=== PATIENT | female | born 1960 | race Caucasian/White ===

== ENCOUNTER → 2020-05-10 08:05 | Outpatient (CLI) | payer OTHER, SELFPAY ==
--- NOTE | ~2020-05-10 | XR_ITS ---
XR_CERV2-3V_CR DATE: 05/10/2020 08:30 INDICATION: Neck pain TECHNIQUE: AP, open mouth and lateral views COMPARISON: None FINDINGS: There is normal alignment of the cervical spine. C1 and C2 are normally aligned and the od ontoid process is intact. No fracture or dislocation or locked facet. No prevertebral soft tissue s welling. The cervical interspaces are preserved. There is degenerative change of the apophyseal zoila nts in the mid and lower cervical spine particularly. IMPRESSION: Degenerative changes involving particularly the apophyseal joints Reviewed, dictated and finalized at Location [facility]. Reviewed, dictated and finalized at location B.
== END ==
PROVIDERS: PCP Family Medicine; Visit Provider Family Medicine
DX: I10 Essential (primary) hypertension (principal); M54.2 Cervicalgia; R42 Dizziness and giddiness
CPT/HCPCS: 72040

== ENCOUNTER 2020-06-02 07:39 | Outpatient (CLI) | payer OTHER, SELFPAY ==
--- NOTE | ~2020-06-02 | US_ITS ---
EXAMINATION: US carotid duplex BI EXAM DATE: 06/02/2020 09:42 INDICATION: Neck pain, vertigo. TECHNIQUE: Grayscale, color and pulsed Doppler images of the cervical carotid arteries were obtained . The degree of vessel stenosis is placed in one of the following categories: normal, <50% stenosis, 50-69% stenosis, >=70% stenosis but less than near-occlusion, near-occlusion, or occlusion. Note that percent stenosis relative to normal distal artery lumen diameter is indirectly measured from velocit y measurements as described by Devante, et al. Radiology 2003; 229:340-346. There is no prior study fo r comparison. FINDINGS: RIGHT SIDE: Right common carotid artery peak systolic velocity (PSV in cm/s): 78 Right bulb/internal carotid artery peak systolic velocity (PSV in cm/s): 85 Right internal carotid artery end diastolic velocity (EDV in cm/s): 38 Right ICA/CCA peak systolic ratio: 1.1 Right external carotid artery peak systolic velocity (PSV in cm/s): 72 Right vertebral artery antegrade flow: yes There is no focal plaque identified. LEFT SIDE: Left common carotid artery peak systolic velocity (PSV in cm/s): 65 Left bulb/internal carotid artery peak systolic velocity (PSV in cm/s): 75 Left internal carotid artery end diastolic velocity (EDV in cm/s): 35 Left ICA/CCA peak systolic ratio: 1.1 Left external carotid artery peak systolic velocity (PSV in cm/s): 74 Left vertebral artery antegrade flow: yes There is no focal plaque identified. IMPRESSION: 1. Normal right internal carotid artery. 2. Normal left internal carotid artery. Reviewed, dictated and finalized at location A.
== END 2020-06-02 07:40 | disposition home or self-care (01) ==
LOC: ANHIMG 07:41
PROVIDERS: PCP Family Medicine; Visit Provider Family Medicine
DX: M54.2 Cervicalgia (principal); I10 Essential (primary) hypertension; R42 Dizziness and giddiness
CPT/HCPCS: 93880

== ENCOUNTER 2021-09-07 08:01 | Outpatient (CLI) | payer OTHER, SELFPAY ==
--- NOTE | ~2021-09-07 | XR_ITS ---
EXAMINATION: XR_RIBSBI_CR EXAM DATE: 09/07/2021 08:36 INDICATION: Left-sided rib pain, upper abdominal pain. TECHNIQUE: Frontal projection of the upper left ribs, frontal projection of the lower left ribs, obli que projection of the left ribs. Frontal projection of the upper right ribs, frontal projection of t he lower right ribs, oblique projection of the right ribs, without chest x-ray(s) for interpretation. FINDINGS: There are no displaced acute rib fractures identified. There are no osteoblastic or osteol ytic lesions identified. IMPRESSION: No acute displaced rib fractures bilaterally. Reviewed, dictated and finalized at location A.
--- NOTE | ~2021-09-07 | XR_ITS ---
XR abdomen obstructive series 09/07/2021 08:36 INDICATION: Left upper abdomen TECHNIQUE: KUB COMPARISON: None FINDINGS: Bowel gas pattern is normal. There is no evidence of free air, mass, organomegaly, ascites or obstruction. No abnormal calculi are seen. The bones appear intact. IMPRESSION: 1: No acute abdominal abnormality identified. Reviewed, dictated and finalized at location A.
[2021-09-07 18:17] LABS: Lipase 206 U/L (23-300)
== END 2021-09-07 08:02 | disposition home or self-care (01) ==
PROVIDERS: PCP Family Medicine; Visit Provider Family Medicine
DX: R73.9 Hyperglycemia, unspecified (principal); R07.81 Pleurodynia; R19.8 Other specified symptoms and signs involving the digestive system and abdomen
CPT/HCPCS: 36415; 71110; 74019; 83036; 83690

== ENCOUNTER 2022-04-30 08:44 | Outpatient (CLI) | payer OTHER, SELFPAY ==
[2022-04-30 19:05] LABS: Hemoglobin A1C 5.6 % (<5.7)
== END 2022-04-30 08:45 | disposition home or self-care (01) ==
PROVIDERS: PCP Family Medicine; Visit Provider Family Medicine
DX: R73.03 Prediabetes (principal)
CPT/HCPCS: 36415; 83036

== ENCOUNTER 2022-05-28 14:50 | Outpatient (CLI) | payer OTHER, SELFPAY ==
[2022-05-28 20:01] LABS: Appearance Urine Clear (Clear); Bilirubin Urine Negative (Negative); Blood Urine Negative (Negative); Color Urine Yellow (Yellow); Glucose Urine UA Negative (Negative); Ketones Urine Negative (Negative); Leukocyte Esterase Ur Negative LEU/UL (Negative); Nitrate Urine Negative (Negative); Protein Urine Negative (Negative); Specific Grav Ur >= 1.030 (1.001-1.035); Urobilinogen Urine 0.2 mg/dL (<2.0)
[2022-05-28 20:09] LABS: Add Urine Microscopic? NO
== END 2022-05-28 14:51 | disposition home or self-care (01) ==
LOC: ANHBWCLAB 14:51
PROVIDERS: PCP Family Medicine; Visit Provider Family Medicine
DX: R39.9 Unspecified symptoms and signs involving the genitourinary system (principal)
CPT/HCPCS: 81003

== ENCOUNTER 2022-05-30 08:03 | Outpatient (CLI) | payer OTHER, SELFPAY ==
--- NOTE | ~2022-05-30 | XR_ITS ---
EXAMINATION: XR abdomen obstructive series DATE: 05/30/2022 08:17 INDICATION: Lower abdominal pain TECHNIQUE: Upright and supine views of the abdomen were obtained. COMPARISON: 09/07/2021 FINDINGS: There is no free intraperitoneal gas or evidence of bowel obstruction. There are no dilated loops of bowel. There are phleboliths of the pelvis. There is mild osteoarthritis of the hips. IMPRESSION: 1. Nonobstructive bowel gas pattern. Reviewed, dictated and finalized at location B.
== END 2022-05-30 08:04 | disposition home or self-care (01) ==
LOC: ANHBWCLAB 08:05
PROVIDERS: PCP Family Medicine; Visit Provider Family Medicine
DX: N30.90 Cystitis, unspecified without hematuria (principal); R10.9 Unspecified abdominal pain
CPT/HCPCS: 74019; 87086; 87088

== ENCOUNTER 2022-06-25 08:55 | Outpatient (CLI) | payer OTHER, SELFPAY ==
[2022-06-25 19:45] LABS: Basophils Absolute Auto 0.1 K/mm3 (0.0-0.1); Basophils Percent Auto 0.8 % (0.2-1.2); Eosinophils Absolute Auto 0.1 K/mm3 (0-0.3); Eosinophils Percent Auto 1.5 % (0-4.4); Hematocrit 45.6 % (37.0-47.0); Hemoglobin 13.9 g/dL (12.0-15.0); Immature Granulocyte Absolute 0.01 K/mm3 (0.00-0.031); Immature Granulocyte Percent A 0.2 % (0-0.5); Lymphocytes Absolute Auto 1.58 K/mm3 (0.9-3.2); Lymphocytes Percent Auto 26.4 % (18.3-44.2); Mean Corpuscular HGB Conc 30.5 g/dl (32-36); Mean Corpuscular Hemoglobin 28.9 pg (26-34); Mean Corpuscular Volume 94.8 fl (80-100); Mean Platelet Volume 9.6 fl (7.4-10.4); Monocytes Absolute Auto 0.5 K/mm3 (0.1-0.6); Monocytes Percent Auto 8.7 % (2.6-8.5); Neutrophils Absolute Auto 3.7 K/mm3 (1.3-6.7); Neutrophils Percent Auto 62.4 % (45.5-73.1); Platelet Count Result 319 k/mm3 (150-375); Red Blood Count 4.81 M/mm3 (4.2-5.4); Red Cell Distribution Width 13.8 % (11.5-14.5)
[2022-06-25 20:19] LABS: Alanine Aminotransferase 21 U/L (6-35); Albumin Level 4.2 g/dL (3.5-5.1); Alkaline Phosphatase 112 U/L (38-126); Anion Gap 10 mmol/L (8-16); Aspartate Amino Transferase 45 U/L (14-36); Bilirubin,Total 0.6 mg/dL (0.2-1.3); Blood Urea Nitrogen 16 mg/dL (7-17); Calcium 9.4 mg/dL (8.4-10.2); Carbon Dioxide 29 mmol/L (22-30); Chloride 101 mmol/L (98-107); Estimated Glomerular Filt Rate > 60; Glucose 95 mg/dL (65-110); Potassium 3.7 mmol/L (3.4-5.0); Sodium 140 mmol/L (137-145)
== END 2022-06-25 08:56 | disposition home or self-care (01) ==
LOC: ANHBWCLAB 08:57
PROVIDERS: PCP Family Medicine; Visit Provider Family Medicine
DX: Z00.00 Encounter for general adult medical examination without abnormal findings (principal)
CPT/HCPCS: 36415; 80053; 85025

== ENCOUNTER 2022-07-23 10:25 | Outpatient (CLI) | payer OTHER, SELFPAY ==
--- NOTE | 2022-08-01 13:02 | WPDHOLTEREM ---
Holter/Event Monitor Holter/Event Monitor Date of procedure: 07/23/22 Holter/Event Procedure: 48 Hr Holter Monitor Indications: Elevated HR/Irr HB Conclusion: 1. 48 hour holter monitor on 07/23/22. 2. Underlying rhythm is sinus rhythm. HR range 41-103 bpm; average HR 63 bpm. 3. There are 1,943 premature supraventricular complexes and 11 supraventricular couplets. No supraventricular tachycardia. 4. There are 2,099 premature ventricular complexes, 85 ventricular couplets, 81 ventricular bigeminy and 3 ventricular trigeminy. No ventricular tachycardia. 5. No sinoatrial or atrioventricular blocks. No significant pauses greater than 2 seconds. 6. No symptoms available for correlation.
== END 2022-07-23 10:26 | disposition home or self-care (01) ==
LOC: ANHCARD 10:26
PROVIDERS: PCP Family Medicine; Visit Provider Family Medicine
DX: R00.9 Unspecified abnormalities of heart beat (principal)
CPT/HCPCS: 93225; 93226

== ENCOUNTER 2022-11-09 07:48 | Outpatient (CLI) | payer OTHER, SELFPAY ==
--- NOTE | ~2022-11-09 | DEXA_ITS ---
Bone Density Report Name: OBIE MERA Age: 62 Sex: Female Ethnicity: White Date of : 1960 Indication: postmenopausal; screening for osteoporosis; height loss; prior fracture; Referring Provider: VANE ESCOTO Study: Bone densitometry was performed. Exam Date: November 09, 2022 Accession number: [id number] Bone Density: Region BMD T-score Z-score Classification AP Spine(L1-L4) 1.102 0.5 2.2 Normal Femoral Neck (Left) 0.951 0.9 2.4 Normal Total Hip (Left) 1.159 1.8 3.0 Normal Femoral Neck (Right) 0.949 0.9 2.4 Normal Total Hip (Right) 1.145 1.7 2.8 Normal Total Hip Mean 1.152 1.8 2.9 Normal World Health Organization criteria for BMD impression classify patients as: Normal (T-score at or above -1.0), Osteopenia (T-score between -1.0 and -2.5), or Osteoporosis (T-score at or below -2.5). 10-year Fracture Risk: FRAX not reported because: All T-scores for Spine Total, Hip Total, Femoral Neck at or above -1.0 Prior hip or vertebral fracture Clinical Information Provided by Patient: Have had a previous hip or vertebral fracture Has had a low trauma fracture Has used the following medications: Vitamin D Patient maximum height was 64.5 Menopause Age: 48 No regular weight bearing exercise Drinks caffeinated beverages Onset of menses at age 10 Number of children 2 Impression: The patient has normal bone mass. The patient has risk factors, including: previous fracture. Discussion: INCREASED RISK OF FRACTURE DUE TO HISTORY OF FRACTURE. The patient's previous fracture puts the patient at high risk of a future fracture. In untreated patients, the risk of osteoporotic fracture increases approximately two-fold for each 1.0 SD decrease in T-score. Low bone density is not the only risk factor for fracture; also consider factors such as patient's age, frailty or poor health, risk of falling, risk of injury, previous osteoporotic fracture, family history of osteoporosis, cigarette smoking, low body weight, etc. Not everyone with a low trauma fracture has osteoporosis; osteomalacia and other metabolic bone disorders should also be considered. Patients who have osteoporosis should be evaluated for specific diseases and conditions (secondary causes) that may cause or contribute to bone loss and fracture risk. National Osteoporosis Foundation (NOF) recommends pharmacologic intervention for patients with a prior hip or vertebral fracture regardless of BMD T-score. The patient should follow a healthful lifestyle (good nutrition with adequate calcium and vitamin D, and appropriate weight-bearing exercise). Follow-Up: Consider a repeat BMD and Vertebral Fracture Assessment (VFA) exam in 2 years or sooner if medically necessary, to reassess this patient's status. Reported by: [facility] on 11/09
== END 2022-11-09 07:49 | disposition home or self-care (01) ==
LOC: ANHIMG 07:50
PROVIDERS: PCP Family Medicine; Visit Provider Student in an Organized Health Care Education/Training Program
DX: Z78.0 Asymptomatic menopausal state (principal)
CPT/HCPCS: 77080

== ENCOUNTER 2022-11-13 00:20 | Day surgery (SDC) | payer OTHER, SELFPAY ==
[2022-10-24 13:39] VITALS: BMI 36.0
[2022-11-13 06:35] VITALS: BP 126/87; PULSE 70; RESP 16; TEMP 36.1; O2SAT 100
[2022-11-13] MEDS: LACTATED RINGERS 1,000 ML 150 ML IV CONT (06:42)
--- NOTE | 2022-11-13 07:28 | WPDANESEPPF ---
Anes - Initial Pre Proc Eval Procedure: Operation Date: 11/13/22 08:00 Proposed Procedures p Screening Colonoscopy - Mukul Klein MD Date/Time: 11/13/22 07:28 Surgeon: Mukul Klein MD Pre Op Diagnosis: Neoplasm Screening Patient Data Age: 62 Gender: F Height: 1.63 m Weight: 92.9 kg Last Vital Signs Temp 97 F L 11/13/22 06:35 Pulse 70 11/13/22 06:35 Resp 16 11/13/22 06:35 BP 126/87 11/13/22 06:35 Pulse Ox 100 11/13/22 06:35 O2 Del Method Room Air 11/13/22 06:35 Allergies Allergy/AdvReac Type Severity Reaction Status Date / Time Penicillins Allergy Unknown Rash Verified 11/13/22 06:34 loratadine AdvReac Severe Other Verified 11/13/22 06:34 Home Medications Medication Instructions Recorded Confirmed Type mecobalamin (vitamin B12) 1,000 See Rx Instructions PO DAILY 09/05/21 11/13/22 History mcg chewable tablet pantoprazole 40 mg tablet,delayed See Rx Instructions .Route 05/23/22 11/13/22 Rx release .COMPLEX #90 tabs ergocalciferol (vitamin D2) 1,250 50,000 unit PO MONTHLY #6 caps 09/13/22 11/13/22 Rx mcg (50,000 unit) capsule atorvastatin 20 mg tablet 20 mg PO DAILY #90 tabs 10/04/22 11/13/22 Rx bisoprolol 2.5 1 tablet PO DAILY #90 tabs 10/04/22 11/13/22 Rx mg-hydrochlorothiazide 6.25 mg tablet Patient hx anesthesia problems: none Family hx anesthesia problems: none Results Review: All pre-operative results and documents have been reviewed as part of the pre-operative evaluation. [facility] Past Medical History Medical History GERD (gastroesophageal reflux disease) HTN (hypertension) Vaginal delivery x2 Surgical History Surgical History History of colonoscopy No pertinent past surgical history Family History Family History Mother Kidney disease Hypertension Thyroid disorder Father Brainstem hemorrhage Cerebrovascular accident Grandparent Carcinoma of colon Sibling Hypertension Anxiety and depression Social History Social History Smoking status: Never smoker Alcohol intake: current Alcohol use details: rare alcohol use Substance use: never Substance use type: does not use Lack of Transportation: No Lack of Food: Never True Current Housing: I Have Housing Concerned About Future Housing: No Difficulty Paying Gas/Electric Bills: No Difficulty Paying for Meds: No Currently Unemployed: No Education: High School Diploma/GED Difficulty w/ Childcare or Family Care: No Living arrangements: with family Spiritual care concerns: No Anes - Eval Final PreProcedure Day of Procedure 11/13/22 07:28 Patient weight: obese Heart: regular rate and rhythm Lungs: clear to auscultation Airway: Mallampati scale class II Neurological: alert and oriented Last oral intake: >/= 8 hours ASA classification: III Emergent: no Anesthetic plan: proceed Anesthesia type and monitoring: general GIVS and standard monitoring Results Review: All pre-operative results and documents have been reviewed as part of the pre-operative evaluation. Informed Consent: The patient's anesthetic plan and its attendant risks and benefits were discussed with the patient/family/POA. Questions were solicited and answers provided to the satisfaction of the patient/family/POA.
--- NOTE | 2022-11-13 07:52 | PM.HPGS ---
History of Present Illness History of Present Illness Consent: Risks, benefits, and alternatives have been discussed and questions answered. Patient agrees to proceed with procedure. Chief complaint: Neoplasm Screening Narrative: Jillian Nicholson is a 62 year old female Presents for screening colonoscopy. Patient's current weight appetite and bowel movements are normal. Patient denies abdominal pain. Has had no bleeding. Family history noncontributory. Review of Systems Review of Systems: Review of systems noncontributory. [facility] Past Medical History Medical History GERD (gastroesophageal reflux disease) HTN (hypertension) Vaginal delivery x2 Surgical History Surgical History History of colonoscopy No pertinent past surgical history Family History Family History Mother Kidney disease Hypertension Thyroid disorder Father Brainstem hemorrhage Cerebrovascular accident Grandparent Carcinoma of colon Sibling Hypertension Anxiety and depression Social History Social History Smoking status: Never smoker Alcohol intake: current Alcohol use details: rare alcohol use Substance use: never Substance use type: does not use Lack of Transportation: No Lack of Food: Never True Current Housing: I Have Housing Concerned About Future Housing: No Difficulty Paying Gas/Electric Bills: No Difficulty Paying for Meds: No Currently Unemployed: No Education: High School Diploma/GED Difficulty w/ Childcare or Family Care: No Living arrangements: with family Spiritual care concerns: No Meds Home Medications and Allergies Home Medications Medication Instructions Recorded Confirmed Type mecobalamin (vitamin B12) 1,000 See Rx Instructions PO DAILY 09/05/21 11/13/22 History mcg chewable tablet pantoprazole 40 mg tablet,delayed See Rx Instructions .Route 05/23/22 11/13/22 Rx release .COMPLEX #90 tabs ergocalciferol (vitamin D2) 1,250 50,000 unit PO MONTHLY #6 caps 09/13/22 11/13/22 Rx mcg (50,000 unit) capsule atorvastatin 20 mg tablet 20 mg PO DAILY #90 tabs 10/04/22 11/13/22 Rx bisoprolol 2.5 1 tablet PO DAILY #90 tabs 10/04/22 11/13/22 Rx mg-hydrochlorothiazide 6.25 mg tablet Allergies Allergy/AdvReac Type Severity Reaction Status Date / Time Penicillins Allergy Unknown Rash Verified 11/13/22 06:34 loratadine AdvReac Severe Other Verified 11/13/22 06:34 Vital Signs Vital Signs - 24 hr 11/13/22 06:35 Temperature 97 F L Pulse Rate 70 Respiratory Rate 16 Blood Pressure 126/87 Pulse Oximetry 100 Oxygen Delivery Room Air Exam Narrative: Physical exam reveals patient to be alert. Vital signs stable. HEENT exam is unremarkable. Patient is anicteric. Lungs are clear to auscultation and percussion. Heart is without murmur or extra sounds. Abdomen bowel sounds present soft nontender with no organomegaly. Digital external rectal exam is normal. Assessment and Plan Assessment and plan (1) Colon cancer screening: Code(s): Z12.11 - Encounter for screening for malignant neoplasm of colon Status: Acute Assessment and Plan: Patient presents today for screening colonoscopy.
[2022-11-13 08:18] VITALS: BP 97/68; PULSE 77; RESP 17; O2SAT 98
[2022-11-13 08:28] VITALS: BP 110/74; PULSE 76; RESP 21; O2SAT 96
[2022-11-13 08:38] VITALS: BP 124/79; PULSE 62; RESP 15; O2SAT 100
== END 2022-11-13 08:49 | disposition home or self-care (01) ==
PROVIDERS: PCP Family Medicine; Visit Provider Internal Medicine Gastroenterology
PROC: 0DJD8ZZ Inspection of Lower Intestinal Tract, Via Natural or Artificial Opening Endoscopic (ICD-10-PCS; CPT 45378; principal; 2022-11-13 08:00)
DX: Z12.11 Encounter for screening for malignant neoplasm of colon (principal); D12.2 Benign neoplasm of ascending colon; D12.5 Benign neoplasm of sigmoid colon; K64.8 Other hemorrhoids; I10 Essential (primary) hypertension; K21.9 Gastro-esophageal reflux disease without esophagitis; E66.9 Obesity, unspecified; Z68.35 Body mass index [BMI] 35.0-35.9, adult
CPT/HCPCS: 45385; 88305; J2704; J7120

== ENCOUNTER 2023-03-28 10:09 | Outpatient (CLI) | payer OTHER, SELFPAY ==
[2023-03-28 18:47] LABS: Alanine Aminotransferase 21 U/L (6-35); Albumin Level 4.2 g/dL (3.5-5.1); Alkaline Phosphatase 118 U/L (38-126); Anion Gap 8 mmol/L (8-16); Aspartate Amino Transferase 54 U/L (14-36); Bilirubin,Total 0.6 mg/dL (0.2-1.3); Blood Urea Nitrogen 18 mg/dL (7-17); Calcium 9.1 mg/dL (8.4-10.2); Carbon Dioxide 25 mmol/L (22-30); Chloride 107 mmol/L (98-107); Cholesterol 191 mg/dL (0-200); Estimated Glomerular Filt Rate > 60; Glucose 89 mg/dL (65-110); HDL Direct 56 mg/dL; Sodium 140 mmol/L (137-145); Triglycerides 117 mg/dL (<150)
[2023-03-28 18:58] LABS: LDL Cholesterol Direct 96 mg/dL
[2023-03-28 19:00] LABS: Basophils Absolute Auto 0.1 K/mm3 (0.0-0.1); Eosinophils Absolute Auto 0.1 K/mm3 (0-0.3); Eosinophils Percent Auto 1.7 % (0-4.4); Hematocrit 42.5 % (37.0-47.0); Hemoglobin 13.5 g/dL (12.0-15.0); Immature Granulocyte Absolute 0.01 K/mm3 (0.00-0.031); Immature Granulocyte Percent A 0.2 % (0-0.5); Lymphocytes Absolute Auto 1.83 K/mm3 (0.9-3.2); Lymphocytes Percent Auto 31.4 % (18.3-44.2); Mean Corpuscular HGB Conc 31.8 g/dl (32-36); Mean Corpuscular Hemoglobin 28.9 pg (26-34); Mean Platelet Volume 9.1 fl (7.4-10.4); Monocytes Absolute Auto 0.5 K/mm3 (0.1-0.6); Monocytes Percent Auto 8.9 % (2.6-8.5); Neutrophils Absolute Auto 3.3 K/mm3 (1.3-6.7); Neutrophils Percent Auto 56.8 % (45.5-73.1); Platelet Count Result 288 k/mm3 (150-375); Red Blood Count 4.67 M/mm3 (4.2-5.4); Red Cell Distribution Width 13.8 % (11.5-14.5); White Blood Count 5.8 K/mm3 (4.5-10.0)
[2023-03-28 19:24] LABS: Vitamin D 25 Hydroxy 22.2 ng/mL
== END 2023-03-28 10:10 | disposition home or self-care (01) ==
LOC: ANHBWCLAB 10:10
PROVIDERS: PCP Family Medicine; Visit Provider Nurse Practitioner
DX: Z00.00 Encounter for general adult medical examination without abnormal findings (principal); R73.03 Prediabetes; E66.9 Obesity, unspecified; R73.9 Hyperglycemia, unspecified; E78.5 Hyperlipidemia, unspecified; I10 Essential (primary) hypertension
CPT/HCPCS: 36415; 80053; 80061; 82306; 84443; 85025

== ENCOUNTER 2023-06-17 08:45 | Emergency (ER) | payer OTHER, SELFPAY ==
--- NOTE | ~2023-06-17 | XR_ITS ---
EXAMINATION: XR ankle RT min 3V DATE: 06/17/2023 09:17 INDICATION: Right ankle pain. Fall. TECHNIQUE: 4 views of right ankle were obtained. COMPARISON: None. FINDINGS: There is an oblique fracture of distal fibula with medial aspect of the fracture line at th e level of the tibial plafond. The distal fracture fragment demonstrates 2 mm posterolateral displace ment. There is an avulsion fracture of medial malleolus with 6 mm distraction. There is widening of t he medial ankle mortise. There is likely a fracture of the posterior malleolus. There is mild midfoot osteoarthritis. There is an enthesophyte at plantar aspect of calcaneal tuberosity. There is ankle s oft tissue swelling. IMPRESSION: 1. Trimalleolar ankle fracture. Reviewed, dictated and finalized at location A.
--- NOTE | ~2023-06-17 | XR_ITS ---
EXAMINATION: XR foot RT min 3V DATE: 06/17/2023 09:17 INDICATION: Right foot pain. Fall. TECHNIQUE: 4 views of right foot were obtained. COMPARISON: None. FINDINGS: There is an oblique fracture of distal fibula with 2 mm posterolateral disc placement of th e distal fracture fragment. There is an avulsion fracture medial malleolus. There is likely a fractur e of posterior malleolus. There is a nondisplaced transverse fracture of base of fourth metatarsal. T here is mild midfoot osteoarthritis. There is mild osteoarthritis of first metatarsophalangeal joint. There is an enthesophyte at plantar aspect of calcaneal tuberosity. IMPRESSION: 1. Trimalleolar ankle fracture. 2. Nondisplaced transverse fracture of base of fourth metatarsal. Reviewed, dictated and finalized at location A.
[2023-06-17 08:50] VITALS: BP 148/65; PULSE 61; RESP 18; TEMP 37.1; O2SAT 100
--- NOTE | 2023-06-17 09:04 | PC.NURSE ---
pt to Xray via stretcher at this time
[2023-06-17 09:44] VITALS: BP 124/79; PULSE 63; RESP 15; O2SAT 99
[2023-06-17] MEDS: HYDROcodone/acetaminophen (*CRX) 7.5-325 MG TABLET 1 TAB PO (09:48)
--- NOTE | 2023-06-17 10:04 | ED.GENADULT ---
HPI - General Adult General Chief complaint: Extremity Injury, Lower Stated complaint: Fall with right ankle injury Time Seen by Provider: 06/17/23 08:59 Source: patient Mode of arrival: ambulatory Limitations: no limitations History of Present Illness HPI narrative: This is a 62-year-old female who presents to the ED with chief complaint of a fall and right ankle injury that occurred this morning just prior to arrival. Patient states that she went outside to check on something and she excellently slipped in the mud. She is unsure if she rolled the ankle but felt like the ankle popped as she went down. Denies any further site of pain or injury. Denies numbness, weakness. Denies any head injury or syncope. Related Data Home Medications Medication Instructions Recorded Confirmed mecobalamin (vitamin B12) 1,000 See Rx Instructions PO DAILY 09/05/21 06/17/23 mcg chewable tablet Allergies Allergy/AdvReac Type Severity Reaction Status Date / Time Penicillins Allergy Unknown Rash Verified 06/17/23 13:56 loratadine AdvReac Severe Other Verified 06/17/23 13:56 Review of Systems Review of Systems: All systems as dictated in [facility] Past Medical History Medical History GERD (gastroesophageal reflux disease) HTN (hypertension) Vaginal delivery x2 Surgical History Surgical History History of colonoscopy No pertinent past surgical history Family History Family History Mother Kidney disease Hypertension Thyroid disorder Father Brainstem hemorrhage Cerebrovascular accident Grandparent Carcinoma of colon Sibling Hypertension Anxiety and depression Social History Social History Smoking status: Never smoker Alcohol intake: current Alcohol use details: rare alcohol use Substance use: never Substance use type: does not use Lack of Transportation: No Lack of Food: Never True Current Housing: I Have Housing Concerned About Future Housing: No Difficulty Paying Gas/Electric Bills: No Difficulty Paying for Meds: No Currently Unemployed: No Education: High School Diploma/GED Difficulty w/ Childcare or Family Care: No Living arrangements: with family Spiritual care concerns: No Exam Narrative: GENERAL: Well-appearing, well-nourished, and in no acute distress. HEAD: Normocephalic, atraumatic. EYES: PERRLA and EOMI. ENT: Nares clear, no rhinorrhea or epistaxis. Mucous membranes moist. Oropharynx without tonsillar hypertrophy exudate or other lesions. NECK: Supple. No adenopathy or masses. CHEST: No respiratory distress. Clear to auscultation. No wheezes rales or rhonchi HEART: Regular rate and rhythm. No murmur heard. Normal peripheral pulses. ABDOMEN: Soft, nontender, nondistended, normal active bowel sounds. MSK: RLE: No gross deformity of the ankle. Moderate ankle effusion noted throughout. Moderate tenderness throughout the ankle as well. Mild tenderness of the fourth metatarsal base. Pulses intact. Cap refill intact. Sensation intact. LLE: Benign SKIN: Warm, dry, no rash. NEURO: Alert and oriented x3. No focal deficits. PSYCH: Normal mood and affect. Course Course Emergency Course: Consult 5909: Spoke with Dr. Tyler (orthopedics) who recommends to not place a posterior splint. Recommends a stirrup splint. He will have the office call and set up an appointment for tomorrow. Vital Signs Vital signs: Vital Signs Temperature 98.8 F 06/17/23 08:50 Pulse Rate 61 06/17/23 08:50 Respiratory Rate 18 06/17/23 08:50 Blood Pressure 148/65 H 06/17/23 08:50 Pulse Oximetry 100 06/17/23 08:50 Oxygen Delivery Room Air 06/17/23 08:50 Temperature 98.8 F 06/17/23 08:50 Pulse Rate 63 06/17/23 09:44 Res
== END 2023-06-17 10:38 | disposition home or self-care (01) ==
PROVIDERS: Emergency Provider Physician Assistant; PCP Family Medicine
DX: S82.851A Displaced trimalleolar fracture of right lower leg, initial encounter for closed fracture (principal); I10 Essential (primary) hypertension; K21.9 Gastro-esophageal reflux disease without esophagitis; W01.0XXA Fall on same level from slipping, tripping and stumbling without subsequent striking against object, initial encounter
CPT/HCPCS: 29515; 73610; 73630; 99284; A9270

== ENCOUNTER 2023-06-20 01:08 | Day surgery (SDC) | payer OTHER, SELFPAY ==
[2023-06-17 14:05] VITALS: BMI 36.1
--- NOTE | 2023-06-17 14:06 | PC.NURSE ---
Report to the Outpatient Waiting Room, entrance under the green pavilion located off [facility], at time _1000_ on date _[id number]_. Planned Procedure Time: _1200_. Time changes happen often and if your time is changed the preop area will call you the afternoon before. - You and your visitor will be asked to self-screen and do not enter if you have any COVID symptoms. - A mask is optional within the hospital at this time. Patients may have clear liquids (water, carbonated beverages, clear teas, apple juice) until 3 hours prior to surgery with a maximum of 20 ounces. - No food from midnight until time of surgery Take the following medications with a SIP of water the morning of surgery: None DO NOT STOP ANY OF YOUR OTHER PRESCRIPTION MEDICATIONS PRIOR TO SURGERY ?EXCEPT THE FOLLOWING Medications to discontinue per physician B12 gummies Date to take last dose___Stop now. Please no make-up, nail setswana, hairspray, perfume, deodorant, or body powder the day of surgery. No jewelry (including any body piercings) or valuables the day of surgery, leave them at home. Please take a shower or bath the night before, or the morning of, surgery with an antibacterial soap. Wear comfortable, loose fitting clothing. - Jewelry must be removed prior to entering the operating room. Rings and piercings that are not removed may be cut off. - The hospital will not accept responsibility for valuables. - Please leave all valuables, including medications, at home the day of surgery. If you are going home after surgery, a licensed regional otr company driver must drive you home. - NO public transportation without another adult if you receive anesthesia. - We recommend that an adult stay with you for 24 hours following discharge. - We also recommend that you do not drive, make important decision, drink alcoholic beverages, or take any drugs that were not prescribed by your health care provider for at least 24 hours after your discharge time. Follow any additional instructions given to you from your surgeon. If you or anyone in your household have experienced Covid symptoms in the past week, please notify your surgeon or the nurse liaison at the phone number below for possible testing. Telephone instructions given to __Patient__and asked if any additional questions and then verbalized understanding. Patient advised to call surgeon office or pre surgery nurse liaison [phone] if any additional questions.
[2023-06-20] VITALS (9 sets, daily range): BP systolic 102–152; BP diastolic 67–93; PULSE 56–80; RESP 12–24; TEMP 36.4–36.6; O2SAT 93–100
--- NOTE | ~2023-06-20 | XR_ITS ---
EXAMINATION: XR surgery orthopedic DATE: 06/20/2023 13:51 INDICATION: ORIF right ankle fracture TECHNIQUE: 4 fluoroscopic images of the right ankle were obtained during procedure performed by Dr. Gabbie marie. Radiologist was not present for the imaging or procedure. The amount of fluoroscopy time used du ring this procedure was 06/17/2023 minutes. COMPARISON: 06/17/2023 FINDINGS: Reduction is essentially anatomic alignment of the previously noted oblique fracture of the distal fi bula and internal fixation with interfragmentary screw and lateral claw plate and screws. No interval change in 6 mm distal distraction of a small avulsion fracture arising from the tip of the medial ma lleolus. Cortical irregularity suspicious for nondisplaced fracture along the posterior malleolus. Nevaeh int spaces appear normal with congruent ankle mortise. Expected postoperative soft tissue gas. IMPRESSION: 1. Essentially anatomic alignment post open reduction internal fixation of an oblique distal right fi bular fracture. 2. Unchanged nondisplaced posterior malleolar fracture and 6 mm distraction of fracture at the tip of the medial malleolus, both remaining unfixed. Reviewed, dictated and finalized at location A. IMPRESSION: 1. Essentially anatomic alignment post open reduction internal fixation of an o blique distal right fibular fracture. 2. Unchanged nondisplaced posterior malleolar fracture and 6 mm distraction of fracture at the tip of the medial malleolus, both remaining unfixed.
[2023-06-20] MEDS: ACETAMINOPHEN 500 MG TABLET 1000 MG PO (10:15)
[2023-06-20] MEDS: KETOROLAC 15 MG/ML VIAL (*BKC) IV PUSH (10:58)
[2023-06-20] MEDS: LACTATED RINGERS 1,000 ML 30 ML IV CONT ×2 (11:45→13:43)
--- NOTE | 2023-06-20 11:52 | WPDANESEPPF ---
Anes - Initial Pre Proc Eval Procedure: Operation Date: 06/20/23 12:00 Proposed Procedures p Open Reduction Internal Fixation of Right Ankle Fracture with Syndesmotic Stabilization - Josef Tyler MD Date/Time: 06/20/23 11:52 Surgeon: Josef Tyler MD Pre Op Diagnosis: right ankle fracture Patient Data Age: 62 Gender: F Height: 1.63 m Weight: 98 kg Last Vital Signs Temp 36.4 C L 06/20/23 11:17 Pulse 80 06/20/23 11:17 Resp 16 06/20/23 11:17 BP 152/75 H 06/20/23 11:17 Pulse Ox 100 06/20/23 11:17 O2 Del Method Room Air 06/20/23 11:17 Allergies Allergy/AdvReac Type Severity Reaction Status Date / Time Penicillins Allergy Unknown Rash Verified 06/20/23 10:13 loratadine AdvReac Severe Other Verified 06/20/23 10:13 Home Medications Medication Instructions Recorded Confirmed Type mecobalamin (vitamin B12) 1,000 See Rx Instructions PO DAILY 09/05/21 06/20/23 History mcg chewable tablet ergocalciferol (vitamin D2) 1,250 50,000 unit PO MONTHLY #6 caps 09/13/22 06/20/23 Rx mcg (50,000 unit) capsule atorvastatin 20 mg tablet 20 mg PO DAILY #90 tabs 03/11/23 06/20/23 Rx bisoprolol 2.5 1 tablet PO DAILY #90 tabs 03/11/23 06/20/23 Rx mg-hydrochlorothiazide 6.25 mg tablet pantoprazole 40 mg tablet,delayed See Rx Instructions .Route 04/26/23 06/20/23 Rx release .COMPLEX #90 tabs hydrocodone 5 mg-acetaminophen 325 1 tablet PO Q8H PRN pain #12 tabs 06/17/23 06/20/23 Rx mg tablet Patient hx anesthesia problems: none Family hx anesthesia problems: none Results Review: All pre-operative results and documents have been reviewed as part of the pre-operative evaluation. [facility] Past Medical History Medical History Closed right trimalleolar fracture GERD (gastroesophageal reflux disease) HTN (hypertension) Vaginal delivery x2 Surgical History Surgical History History of colonoscopy No pertinent past surgical history Family History Family History Mother Kidney disease Hypertension Thyroid disorder Father Brainstem hemorrhage Cerebrovascular accident Grandparent Carcinoma of colon Sibling Hypertension Anxiety and depression Social History Social History Smoking status: Never smoker Alcohol intake: current Alcohol use details: rare alcohol use Substance use: never Substance use type: does not use Lack of Transportation: No Lack of Food: Never True Current Housing: I Have Housing Concerned About Future Housing: No Difficulty Paying Gas/Electric Bills: No Difficulty Paying for Meds: No Currently Unemployed: No Education: High School Diploma/GED Difficulty w/ Childcare or Family Care: No Living arrangements: with family Occupation/Education: retired Spiritual care concerns: No Anes - Eval Final PreProcedure Day of Procedure 06/20/23 11:52 Patient weight: obese Heart: regular rate and rhythm Lungs: clear to auscultation Airway: Mallampati scale class II Neurological: alert and oriented Last oral intake: >/= 8 hours ASA classification: II Emergent: no Anesthetic plan: proceed Anesthesia type and monitoring: general LMA and standard monitoring Results Review: All pre-operative results and documents have been reviewed as part of the pre-operative evaluation. Informed Consent: The patient's anesthetic plan and its attendant risks and benefits were discussed with the patient/family/POA. Questions were solicited and answers provided to the satisfaction of the patient/family/POA.
--- NOTE | 2023-06-20 12:12 | WPDHPUPDATE1 ---
History and Physical Update Update Date/Time: 06/20/23 12:12 History and Physical has been reviewed, including an updated exam of the patient. There are NO changes in the patient's condition. Risks, benefits, and alternatives have been discussed and questions answered. Patient agrees to proceed with procedure.
[2023-06-20] MEDS: ceFAZolin 2 GM/D5W 50 ML 2 GM/50 ML BAG IVPB (12:15)
[2023-06-20] MEDS: BUPivacaine HCL 0.5% PF 30 ML VIAL 20 ML INFILTRATE (12:53)
--- NOTE | 2023-06-20 13:54 | W.PM.PROC2 ---
Procedure Note - Detailed Date of Procedure 06/20/23 Pre-op Diagnosis Right trimalleolar ankle fracture Post-op Diagnosis Same Procedure Performed ORIF right lateral malleolus Surgeon Josef Tyler MD Electrical Prospecting Observer Hilaria Bernal Anesthesia General Description of Procedure The patient was identified and proper side identified. She was taken to the operating room and transferred to the OR table placing her supine taking care to pad her torso and extremities. After general anesthetic induction and intubation, a nonsterile tourniquet was placed high on the right thigh. Right lower extremity was prepped and draped in the usual sterile fashion. The extremity was exsanguinated and the tourniquet inflated to 300 millimeter of mercury remaining up for approximately 50 minutes. Longitudinal incision was made over the distal fibula. Subcutaneous tissue was sharply dissected down to the fracture site. Fracture was identified and cleared of debris. There was some small free osteoarticular fragments that were removed. Wound was irrigated removing any clot from the joint. Fracture was able to be reduced anatomically and then secured with a 3.5 millimeter screw in lag fashion. After this a lateral fibular hook plate was applied after being properly contoured. This was done under fluoroscopic visualization to ensure the joint was not violated. Once the plate was applied syndesmosis was assessed and noted to be stable. Talus was anatomically reduced in the mortise. The wound was irrigated with sterile saline. Subcutaneous tissues reapproximated with 3-0 Monocryl and then 2-0 Stratafix. [place] were used for the skin. Sterile dressings applied. A well-padded stirrup ankle splint was applied with the ankle in a neutral position. Tourniquet was released. Patient tolerated the procedure well. She has taken recovery in stable condition. There were no known intraoperative complications. Estimated blood loss 20 milliliters, much of which was fracture hematoma. She received perioperative antibiotics. Estimated Blood Loss -20.0 Tourniquet Time 50 Drains No Packing No Pathology None sent Complications No immediate complications Condition Stable Disposition PACU [facility] Billing Surgery - Charge Forward: Surgery Billing ([id number], [id number])
[2023-06-20] MEDS: fentaNYL CITRATE INJ (*CRX) 100 MCG/2 ML VIAL 25 MCG IV PUSH (14:11)
[2023-06-20] MEDS: oxyCODONE HCL (*CRX) 5 MG TAB IR PO (15:24)
== END 2023-06-20 16:00 | disposition home or self-care (01) ==
PROVIDERS: PCP Family Medicine; Visit Provider Orthopaedic Surgery
PROC: (CPT 27792; principal; 2023-06-20 12:00)
DX: S82.851A Displaced trimalleolar fracture of right lower leg, initial encounter for closed fracture (principal); W19.XXXA Unspecified fall, initial encounter; I10 Essential (primary) hypertension; K21.9 Gastro-esophageal reflux disease without esophagitis; E66.9 Obesity, unspecified; Z68.37 Body mass index [BMI] 37.0-37.9, adult
CPT/HCPCS: 27792; 99199; A9270; C1713; J0690; J1100; J1170; J1885; J2250; J2405; J2704; J3010; J7120

== ENCOUNTER 2023-09-30 10:41 | Outpatient (CLI) | payer MEDICARE, SELFPAY ==
[2023-09-30 19:21] LABS: Alanine Aminotransferase 20 U/L (6-35); Albumin Level 4.4 g/dL (3.5-5.1); Alkaline Phosphatase 119 U/L (38-126); Anion Gap 10 mmol/L (8-16); Aspartate Amino Transferase 55 U/L (14-36); Bilirubin,Total 0.7 mg/dL (0.2-1.3); Blood Urea Nitrogen 21 mg/dL (7-17); Calcium 9.5 mg/dL (8.4-10.2); Carbon Dioxide 24 mmol/L (22-30); Chloride 105 mmol/L (98-107); Estimated Glomerular Filt Rate > 60; Glucose 91 mg/dL (65-110); Potassium 3.9 mmol/L (3.4-5.0); Sodium 139 mmol/L (137-145)
[2023-09-30 20:04] LABS: Hepatitis B Surface Antigen Negative (Negative)
[2023-09-30 20:10] LABS: HAV RESULT Negative (Negative); Hepatitis B Core IgM Result Negative (Negative)
[2023-09-30 20:21] LABS: Hepatitis C Virus Antibody Negative (Negative)
[2023-09-30 20:42] LABS: Hemoglobin A1C 5.5 % (<5.7)
== END 2023-09-30 10:42 | disposition home or self-care (01) ==
PROVIDERS: PCP Family Medicine; Visit Provider Family Medicine
DX: R74.01 Elevation of levels of liver transaminase levels (principal); R94.4 Abnormal results of kidney function studies; Z79.899 Other long term (current) drug therapy
CPT/HCPCS: 36415; 80053; 80074; 83036

== ENCOUNTER 2023-10-08 08:14 | Outpatient (CLI) | payer MEDICARE, SELFPAY ==
--- NOTE | ~2023-10-08 | US_ITS ---
US abdomen limited INDICATION: Elevated liver enzymes. PROCEDURE: Realtime right upper abdominal ultrasound. COMPARISON: No prior studies for comparison. FINDINGS: The pancreas is normal without focal mass or pancreatic ductal dilation. Liver echotexture is normal without focal mass or intrahepatic biliary dilatation. There is normal directional flow i n the portal vein. The gallbladder is normal without stones, gallbladder wall thickening or pericholecystic fluid. Comm on bile duct measures 3 mm. No sonographic Lee's sign. IMPRESSION: 1: Normal limited abdominal ultrasound. Reviewed, dictated and finalized at location D. NT SERVICES ASSOCIATE
== END 2023-10-08 08:15 ==
PROVIDERS: PCP Family Medicine; Visit Provider Family Medicine
DX: R74.01 Elevation of levels of liver transaminase levels (principal)
CPT/HCPCS: 76705

== ENCOUNTER 2023-10-30 13:00 | Outpatient (RCR) | payer MEDICARE, OTHER, SELFPAY ==
--- NOTE | 2023-08-07 14:23 | OPREHPOC ---
Outpatient Therapy Plan of Care This is a Multidisciplinary Plan of Care that may contain components documented by all disciplines (PT, OT, and ST.) PT Problem 1 PT Problem #1 Knowledge Deficit PT Goal 1 Goal 1. Patient will perform independent HEP Target Visit 13 PT Problem 2 PT Problem #2 Pain PT Goal 1 Goal 1. Patient will report pain 3/10 highest with ADL' s Target Visit 13 PT Problem 3 PT Problem #3 Impaired Range of Motion PT Goal 1 Goal 1. Improve right DF to at least 8 degrees to normalize gait pattern 2. Improve right PF to at least 45 degrees to normalize gait pattern Target Visit 13 PT Problem 4 PT Problem #4 Impaired Gait PT Goal 1 Goal 1. Patient will be able to ambulate without assistive device and no major gait deviations Target Visit 13 PT Problem 5 PT Problem #5 Impaired Functional ADLs PT Goal 1 Goal 1. Patient able to cook and clean without limitation Target Visit 13
--- NOTE | 2023-08-07 14:23 | PTOPEVAL1 ---
Assessment and note entered by Puja Burkett DPT Evaluation Information Assessment Status Evaluation Subjective Information Pt reports she had a tri-malleolar fracture and has surgery to repair on 06/20/23. Had fallen on the , went to ER, then had surgery later that week. Has been non-weight bearing and in a boot for the past 6 weeks but was told last week she can start weaning slowly from the boot. Has been mostly using a wheelchair (or knee scooter) for the past 6 weeks. Highest pain in the last week 8/ 10 and lowest 0/10. Pt reports she is able to do some activities at home if she can sit down like laundry, independent with bathing and dressing but has assist to get out of the shower. Previously had been independent with cooking, cleaning, yard work. No assistive device prior to fracture. Pt is retired. Pt is not driving currently. Patient goal: get back to normal, walk again. Returns to MD in about 6 weeks. Reported Pain Level Pain Score 0: Self Report Assessment PT Clinical Summary The patient is presenting to skilled therapy after a trimalleolar fracture and subsequent surgery on 06/20/23. She presents with greatly decreased right ankle range of motion, edema, and gait impairments (with boot and walker) which are contributing to her pain and difficulty with normal activities including cooking and cleaning. She will highly benefit from therapy to address these impairments in order to safely return to prior level of function. Plan of Care Interventions Electrical Stimulation,Gait Training,Hot Pack/Cold Pack,Manual Therapy,Neuro Re-education,Patient/ Caregiver Education,Therapeutic Activities, Therapeutic Exercise PT Services Indicated Yes Treatment Frequency and 2 times a week for 12 visits Duration These treatments will address the objective and functional deficits as defined above. The patient will be advanced safely and appropriately in order for the patient to progress towards his/her prior level of function. Additional exercises will be introduced and as well as a comprehensive home exercise program upon discharge, if needed, ?to ensure carryover of functional gains achieved in the clinic. This treatment plan has been reviewed and agreement upon by the patient.
--- NOTE | 2023-09-05 13:15 | OPREHPOC ---
Outpatient Therapy Plan of Care This is a Multidisciplinary Plan of Care that may contain components documented by all disciplines (PT, OT, and ST.) PT Problem 1 PT Problem #1 Knowledge Deficit PT Goal 1 Goal 1. Patient will perform independent HEP Target Visit 13 Progress Partially Met PT Problem 2 PT Problem #2 Pain PT Goal 1 Goal 1. Patient will report pain 3/10 highest with ADL' s Target Visit 13 Progress Met PT Problem 3 PT Problem #3 Impaired Range of Motion PT Goal 1 Goal 1. Improve right DF to at least 8 degrees to normalize gait pattern 2. Improve right PF to at least 45 degrees to normalize gait pattern Target Visit 13 Progress Partially Met PT Problem 4 PT Problem #4 Impaired Gait PT Goal 1 Goal 1. Patient will be able to ambulate without assistive device and no major gait deviations Target Visit 13 Progress Partially Met PT Problem 5 PT Problem #5 Impaired Functional ADLs PT Goal 1 Goal 1. Patient able to cook and clean without limitation Target Visit 13 Progress Partially Met
--- NOTE | 2023-09-05 13:15 | PTOPPROG ---
Assessment and note entered by Puja Burkett DPT Evaluation Information Assessment Status Progress Subjective Information Highest pain in last week 3/10 and lowest 0/10. Has not worn the boot in about a week. Using a cane at all times now, did not use one before injury. Pt reports therapy is going well, she is able to walk easier and navigate stairs but has not yet gone to the basement. Has been cooking and light cleaning, no yard work yet. Returns to MD on 09/19/23. Assessment PT Clinical Summary The patient has made good progress in therapy and reports decreased pain overall. She has been able to wean from her boot and walker and is now using a cane. She has been able to return to most ADL's. She demonstrates improved but still limited ankle motion and strength and will benefit from further therapy to continue addressing strength, motion, and gait in order to return to full function. Plan of Care Interventions Electrical Stimulation,Gait Training,Hot Pack/Cold Pack,Manual Therapy,Neuro Re-education,Patient/ Caregiver Education,Therapeutic Activities, Therapeutic Exercise PT Services Indicated Yes Treatment Frequency and 1 time a week for 4 weeks Duration These treatments will address the objective and functional deficits as defined above. The patient will be advanced safely and appropriately in order for the patient to progress towards his/her prior level of function. Additional exercises will be introduced and as well as a comprehensive home exercise program upon discharge, if needed, ?to ensure carryover of functional gains achieved in the clinic. This treatment plan has been reviewed and agreement upon by the patient.
--- NOTE | 2023-10-01 11:40 | OPREHPOC ---
Outpatient Therapy Plan of Care This is a Multidisciplinary Plan of Care that may contain components documented by all disciplines (PT, OT, and ST.) PT Problem 1 PT Problem #1 Knowledge Deficit PT Goal 1 Goal 1. Patient will perform independent HEP Target Visit 18 Progress Partially Met PT Problem 2 PT Problem #2 Pain PT Goal 1 Goal 1. Patient will report pain 3/10 highest with ADL' s Target Visit 13 Progress Met PT Problem 3 PT Problem #3 Impaired Range of Motion PT Goal 1 Goal 1. Improve right DF to at least 8 degrees to normalize gait pattern 2. Improve right PF to at least 45 degrees to normalize gait pattern Target Visit 18 Progress Partially Met PT Problem 4 PT Problem #4 Impaired Gait PT Goal 1 Goal 1. Patient will be able to ambulate without assistive device and no major gait deviations Target Visit 18 Progress Partially Met PT Problem 5 PT Problem #5 Impaired Functional ADLs PT Goal 1 Goal 1. Patient able to cook and clean without limitation Target Visit 18 Progress Partially Met
--- NOTE | 2023-10-01 11:40 | PTOPPROG ---
Assessment and note entered by Puja Burkett DPT Evaluation Information Assessment Status Progress Subjective Information Highest pain 1-2/10 in the last week, only getting pain for very short amounts of time. Pt is not using her cane most of the time now and has been able to start cooking and cleaning. Has not yet done deep cleaning like needing to get on her hands and knees to scrub. Continued difficulty with stair descent but is able to use reciprocal pattern. Assessment PT Clinical Summary The patient has continued to make progress in therapy and reports decreased pain and improved function at home. She demonstrates improved ankle strength and mobility and improved walking speed. She is able to navigate stairs reciprocally but with significantly more difficulty descending. She will benefit from therapy to further address gait pattern and stairs in order to return to full function. Plan of Care Interventions Electrical Stimulation,Gait Training,Hot Pack/Cold Pack,Manual Therapy,Neuro Re-education,Patient/ Caregiver Education,Therapeutic Activities, Therapeutic Exercise PT Services Indicated Yes Treatment Frequency and 1 time a week for 4 visits Duration These treatments will address the objective and functional deficits as defined above. The patient will be advanced safely and appropriately in order for the patient to progress towards his/her prior level of function. Additional exercises will be introduced and as well as a comprehensive home exercise program upon discharge, if needed, ?to ensure carryover of functional gains achieved in the clinic. This treatment plan has been reviewed and agreement upon by the patient.
--- NOTE | 2023-10-30 13:27 | PTOPDC ---
Assessment and note entered by Puja Burkett DPT Evaluation Information Assessment Status Discharge Subjective Information Pt reports no real pain in the last week, mild discomfort and fatigue at times. Was up on her feet a lot for Ann[place]. Pt has started driving again, is cooking and cleaning, and going to the grocery store. No return to MD. Reported Pain Level Pain Score 0: Self Report Assessment PT Clinical Summary The patient has continued to make good progress in therapy and demonstrates improved gait speed/ pattern and stair navigation. She has been able to return to all typical activities including driving and reports no real pain recently. Due to her progress, plan for discharge at this time. She has been educated in a thorough HEP to continue addressing joint stiffness and weakness and to follow up with MD and/or PT as needed. Plan of Care PT Services Indicated No
== END 2023-10-30 14:56 | disposition home or self-care (01) ==
LOC: ANHPT 13:00
PROVIDERS: PCP Family Medicine; Visit Provider Orthopaedic Surgery
DX: Z47.89 Encounter for other orthopedic aftercare (principal); Z98.890 Other specified postprocedural states
CPT/HCPCS: 97110; 97116; 97140; 97161; 97530

== ENCOUNTER 2023-11-11 10:39 | Outpatient (CLI) | payer MEDICARE, SELFPAY ==
--- NOTE | ~2023-11-11 | US_ITS ---
Thyroid ultrasound. Clinical History: Nontoxic goiter Findings: Real-time sonography of the thyroid gland was performed. The right lobe measures 4.7 x 2.6 x 1.7 cm. The left lobe measures 3.8 x 2.0 x 1.5 cm. The isthmus is 4 mm in AP diameter. Thyroid parenchyma is diffusely heterogeneous, without discrete nodule. Impression: Heterogeneous thyroid gland without discrete nodule.. Reviewed, dictated and finalized at location . 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
== END 2023-11-11 10:40 ==
PROVIDERS: PCP Family Medicine; Visit Provider Registered Nurse
DX: E04.9 Nontoxic goiter, unspecified (principal)
CPT/HCPCS: 76536

== ENCOUNTER 2023-11-26 08:20 | Outpatient (CLI) | payer MEDICARE, SELFPAY ==
[2023-11-26 20:20] LABS: Free T4 Free Thyroxine 0.93 ng/mL (0.78-2.19)
[2023-11-29 05:50] LABS: Thyroid Peroxidase Antibodies 3 IU/mL (<9)
== END 2023-11-26 08:21 | disposition home or self-care (01) ==
PROVIDERS: PCP Nurse Practitioner Adult Health; Visit Provider Nurse Practitioner Adult Health
DX: E04.9 Nontoxic goiter, unspecified (principal)
CPT/HCPCS: 36415; 84439; 84443; 86376

== ENCOUNTER 2024-03-23 09:47 | Outpatient (CLI) | payer MEDICARE, SELFPAY ==
[2024-03-23 19:48] LABS: Hemoglobin 13.5 g/dL (12.0-15.0); Mean Corpuscular HGB Conc 30.7 g/dl (32-36); Mean Corpuscular Volume 91.3 fl (80-100); Mean Platelet Volume 9.5 fl (7.4-10.4); Platelet Count Result 300 k/mm3 (150-375); Red Blood Count 4.82 M/mm3 (4.2-5.4); Red Cell Distribution Width 13.7 % (11.5-14.5)
[2024-03-23 20:07] LABS: Alanine Aminotransferase 20 U/L (6-35); Albumin Level 4.3 g/dL (3.5-5.1); Alkaline Phosphatase 116 U/L (38-126); Anion Gap 6 mmol/L (4-12); Aspartate Amino Transferase 41 U/L (14-36); Bilirubin,Total 0.7 mg/dL (0.2-1.3); Blood Urea Nitrogen 19 mg/dL (7-17); Calcium 9.4 mg/dL (8.4-10.2); Carbon Dioxide 23 mmol/L (22-30); Chloride 110 mmol/L (98-107); Cholesterol 186 mg/dL (0-200); Estimated Glomerular Filt Rate > 60; Glucose 104 mg/dL (65-110); HDL Direct 52 mg/dL; Sodium 139 mmol/L (137-145); Triglycerides 101 mg/dL (<150)
[2024-03-23 20:18] LABS: Vitamin D 25 Hydroxy 32.6 ng/mL
[2024-03-23 20:19] LABS: LDL Cholesterol Direct 103 mg/dL
== END 2024-03-23 09:48 | disposition home or self-care (01) ==
PROVIDERS: PCP Nurse Practitioner Adult Health; Visit Provider Family Medicine
DX: R74.01 Elevation of levels of liver transaminase levels (principal); E04.9 Nontoxic goiter, unspecified; E53.8 Deficiency of other specified B group vitamins; E66.9 Obesity, unspecified; R73.03 Prediabetes; R79.89 Other specified abnormal findings of blood chemistry; R94.4 Abnormal results of kidney function studies; K21.9 Gastro-esophageal reflux disease without esophagitis; Z79.899 Other long term (current) drug therapy
CPT/HCPCS: 36415; 80053; 80061; 82306; 82607; 85027

== ENCOUNTER 2024-10-05 10:00 | Outpatient (CLI) | payer MEDICARE, SELFPAY ==
[2024-10-05 19:27] LABS: Hematocrit 42.9 % (37.0-47.0); Hemoglobin 13.6 g/dL (12.0-15.0); Mean Corpuscular HGB Conc 31.7 g/dl (32-36); Mean Corpuscular Hemoglobin 28.9 pg (26-34); Mean Corpuscular Volume 91.1 fl (80-100); Mean Platelet Volume 9.3 fl (7.4-10.4); Platelet Count Result 301 k/mm3 (150-375); Red Blood Count 4.71 M/mm3 (4.2-5.4); Red Cell Distribution Width 13.6 % (11.5-14.5)
[2024-10-05 19:29] LABS: Alanine Aminotransferase 20 U/L (6-35); Albumin Level 4.2 g/dL (3.5-5.1); Alkaline Phosphatase 114 U/L (38-126); Anion Gap 6 mmol/L (4-12); Aspartate Amino Transferase 43 U/L (14-36); Bilirubin,Total 0.7 mg/dL (0.2-1.3); Blood Urea Nitrogen 19 mg/dL (7-17); Calcium 9.4 mg/dL (8.4-10.2); Carbon Dioxide 28 mmol/L (22-30); Chloride 106 mmol/L (98-107); Estimated Glomerular Filt Rate > 60; Glucose 95 mg/dL (65-110); Sodium 140 mmol/L (137-145)
[2024-10-05 20:05] LABS: Vitamin D 25 Hydroxy 38.3 ng/mL
[2024-10-05 22:13] LABS: Hemoglobin A1C 6.1 % (<5.7)
== END 2024-10-05 10:01 | disposition home or self-care (01) ==
PROVIDERS: PCP Nurse Practitioner Adult Health; Visit Provider Family Medicine
DX: R74.01 Elevation of levels of liver transaminase levels (principal); R94.4 Abnormal results of kidney function studies; E55.9 Vitamin D deficiency, unspecified; R73.9 Hyperglycemia, unspecified; E04.9 Nontoxic goiter, unspecified; R19.8 Other specified symptoms and signs involving the digestive system and abdomen; R73.03 Prediabetes; E53.8 Deficiency of other specified B group vitamins; K21.9 Gastro-esophageal reflux disease without esophagitis; E66.9 Obesity, unspecified; D48.19 Other specified neoplasm of uncertain behavior of connective and other soft tissue
CPT/HCPCS: 36415; 80053; 82306; 82607; 83036; 84443; 85027

== ENCOUNTER 2025-04-19 10:30 | Outpatient (CLI) | payer MEDICARE, SELFPAY ==
--- OUTSIDE RECORDS SUMMARY | 2025-04-19 11:27 | XMS_ITS | Referral Summary ---
[facility] Organization [facility] Address [address] [place] [address] Care Team Providers Care Tobacco Warehouse Manager Name Role Phone Sánchez Meehan MD Primary Care Provider [phone] Sarbjit Florian MD Unavailable [phone] Allergies Active Allergy Reactions Criticality Noted Date Comments Penicillins Rash Reaction: Rash, Medications atorvastatin (LIPITOR) 20 mg tablet TAKE 1 TABLET BY MOUTH DAILY WITH SUPPER 08/06/2019 Active bisoprolol-hydro CHLOROthiazide (ZIAC) 2.5-6.25 mg per tablet 08/04/[address] (PROTONIX) 40 mg EC tablet 06/26/2019 Active ergocalciferol (Vitamin D2) 50,000 unit capsule 05/27/2020 Active cyanocobalamin (vitamin B-12) 1,000 mcg tablet 05/27/2020 Ac tive Active Problems Problem Noted Date Diagnosed Date Abnormal mammogram 12/17/2021 Essential hypertension, benign 05/04/2015 Hyperlipidemia 05/04/2015 Pure hypercholesterolemia 03/20/2014 Overview (02/08/2017): PURE HYPERCHOLESTEROLEM Adiposity 03/20/2014 Overview (02/08/2017): OBESITY NOS Hypertension 03/20/2014 Overview (02/08/2017): HYPERTENSION NOS Gastroesophageal reflux disease 03/20/2014 Overview (02/08/2017): ESOPHAGEAL REFLUX Immunizations Immunization Administration Dates Next Due Influenza, Trivalent, IM (MDV) 08/03/2015 Social History Tobacco Use Types Packs/Day Years Used Date Smoking Tobacco: Never Smokeless Tobacco: Never Alcohol Use Standard Drinks/Week Comments Yes 0 (1 standard drink = 0.6 oz pur e alcohol) Occasionally Humiliation, Afraid, Rape, and Kick questionnair e Answer Date Recorded Within the last year, have y ou been afraid of your partner or ex-partner? No 08/29/2020 Within the last year, have y ou been humiliated or emotionally abused in other ways by your partner or ex-partner? No Within the last year, have y ou been kicked, hit, slapped, or otherwise physically hurt by your partner or ex-partner? No 08/29/2020 Within the last year, have y ou been raped or forced to have any kind of sexual activity by your partner or ex-partner? No 08/29/2020 Social Connection and Isolation Panel [NHANES] A nswer Date Recorded Frequency of Communication with Friends and Fami ly Not on file 08/29/2020 Frequency of Social Gatherings with Friends and Family Not on file 08/29/2020 Attends Yazidi Services Not on file 08/29 Active Member of Clubs or Organizations Not on f ile 08/29/2020 Attends Club or Organization Meetings Not on angela e 08/29/2020 Are you , , di vorced, , never , or living with a partner? 08/29/2020 Comments No Sex and Gender Information Value Date Recorded Sex Assigned at Not on file Legal Sex Female 9:12 AM CALL OR CONTACT CENTRE OPERATOR Gender Identity Not on file Sexual Orientation Not on file Last Filed Vital Signs Vital Sign Reading Time Taken Comments Blood Pressure 124/86 08/29/2020 9:05 AM CDT Pulse 66 04/20/2014 2:55 PM CDT Temperature - - Respiratory Rate - - Oxygen Saturation - - Inhaled Oxygen Concentration - - Weight 102.5 kg (225 lb 15.5 oz) 2021 12:51 PM CALL OR CONTACT CENTRE OPERATOR Height 161.3 cm (5' 3.5) 12/13/2021 12 :51 PM CALL OR CONTACT CENTRE OPERATOR Body Mass Index 39.4 12/13/2021 12:51 PM CALL OR CONTACT CENTRE OPERATOR Plan of Treatment Not on file Procedures Procedure Name Priority Date/Time Associated Diagnosis Comments SCREENING MAMMOGRAM BILATERAL W DENNIS Schedule Routine, Read Routine (OP Routine) 10/12/2024 9:53 AM CALL OR CONTACT CENTRE OPERATOR Screening mammogram, encounter for from Last 3 Months or Most Recently Relevant to Health Maintenance Results * Screening Mammogram Bilateral W Dennis (10/12/2024 9:53 AM CALL OR CONTACT CENTRE OPERATOR) Anatomical Region Laterality Modality Breast Bilateral Mammography Narrative 10/14/2024 4:31 PM CALL OR CONTACT CENTRE OPERATOR Mammogram Technique: Bilateral Digital Breast Tomosynthesis, Bilateral C-view 2D Screening mammogram. Views obtained: bilateral craniocaudal and bilateral mediolateral oblique. Computer Aided Detection was performed. Mammogram Findings: The present examination has been compared to prior imaging studies performed on 08/29/2020, 09/26/2021 and 11/03/2021, and at [facility] on 12/13/2021, 10/02/2022 and 10/04/2023. There are scattered areas of fibroglandular density. There is no suspicious abnormality in either breast. There are no significant changes from the prior study. Impression: There is no mammographic evidence of malignancy. Annual screening mammography is recommended. OVERALL FINAL ASSESSMENT: BI-RADS CATEGORY 1: Negative. Procedure Note Alexandra Jansen MD - 10/14/2024 Mammogram Technique: Bilateral Digital Breast Tomosynthesis, Bilateral C-view 2D Screening mammogram. Views obtained: bilateral craniocaudal and bilateral mediolateral oblique. Computer Aided Detection was performed. Mammogram Findings: The present examination has been compared to prior imaging studies performed on 08/29/2020, 09/26/2021 and 11/03/2021, and at [facility] on 12/13/2021, 10/02/2022 and 10/04/2023. There are scattered areas of fibroglandular density. There is no suspicious abnormality in either breast. There are no significant changes from the prior study. Impression: There is no mammographic evidence of malignancy. Annual screening mammography is recommended. OVERALL FINAL ASSESSMENT: BI-RADS CATEGORY 1: Negative. us Self Screening Mammogram IMG MAMMO PROCEDURES Fi nal Result from Last 3 Months or Most Recently Relevant to Health Maintenance Insurance [facility] CHOICE PLUS [facility] MEDICARE [facility] [employer] MEDICARE GOLD Care Teams Tobacco Warehouse Manager Relationship Specialty Start Date End Date Sánchez Meehan MD [address] [place] [address] PCP - General Family Practice 10/12/24 Sarbjit Florian MD [address] [place] [address] Referring Physician Obstetrics and Gynecology 10/12/24
--- OUTSIDE RECORDS SUMMARY | 2025-04-19 11:27 | XMS_ITS | Clinical Summary ---
Author Organization [facility] Address [address] [place] [address] Care Team Providers Care Hostel Manager Name Role Phone Sánchez Meehan MD Primary Care Provider [phone] Sarbjit Florian MD Unavailable [phone] Allergies Active Allergy Reactions Criticality Noted Date [...] Administration Dates Next Due Influenza, Trivalent, IM ([place]) 08/03/2015 Medical History Medical History Date Comments Adiposity Obesity Gastroesophageal reflux disease GERD Hyperlipidemia Hyperlipidemia Hypertension Hypertension Family History Medical History Relation Name Comments Stroke Father Sulaiman Mandujano Hypertension Mother Samaria Mandujano Kidney disease Mother Samaria Mandujano Hyperlipidemia Other 1 Family histor y of Hyperlipidemia; Hypertension Other 2 Family history of Hypertension; Cancer Paternal Grandmother Lia Mandujano Colon cancer Paternal Grandmother Lia Mandujano Breast cancer Neg Hx Ovarian cancer Neg Hx Thyroid cancer Neg Hx Uterine cancer Neg Hx Relation Name Status Comments Father Sulaiman Mandujano Mother Samaria Mandujano Other 1 Other 2 Paternal Grandmother Lia Mandujano Social History Tobacco Use Types Packs/Day Years [...] and Family Not on file 08/29/2020 Attends Zoroastrianism Services Not on file 08/29 Active Member of Clubs or Organizations Not on f ile 08/29/2020 Attends Club or Organization Meetings Not on angela e 08/29/2020 Are you , , di vorced, , never , or living with a partner? 08/29/2020 Comments No Sex and Gender Information Value Date Recorded Sex Assigned at Not on file Legal Sex Female 9:12 AM ASSEMBLER CLIP ON SUNGLASSES Gender Identity Not on file Sexual Orientation Not on file Obstetrics History Para Term AB IAB SAB Ectopic Multiple Livin g Live Births 2 2 2 2 2 Date Outcome GA Total Labor Labor/2nd/3rd Weight Sex Type Anes PTL Zaina A1 A5 Name Clin 1983 Term 3.572 kg (7 lb 14 oz) F Vag-S pont Living 1985 Term 3.742 kg (8 lb 4 oz) F Vag-S pont Y Living Last Filed Vital Signs Vital Sign Reading Time Taken Comments Blood Pressure 124/86 08/29/2020 9:05 AM CDT Pulse 66 04/20/2014 2:55 PM CDT Temperature - - Respiratory Rate - - Oxygen Saturation - - Inhaled Oxygen Concentration - - Weight 102.5 kg (225 lb 15.5 oz) 2021 12:51 PM ASSEMBLER CLIP ON SUNGLASSES Height 161.3 cm (5' 3.5) 12/13/2021 12 :51 PM ASSEMBLER CLIP ON SUNGLASSES Body Mass Index 39.4 12/13/2021 12:51 PM ASSEMBLER CLIP ON SUNGLASSES Plan of Treatment Health Maintenance Due Date Last Done Comments Colon Cancer Screening-Colonoscopy 1958 Depression Screening 1958 Fall Risk Assessment 1958 Hepatitis C Screening 1958 Osteoporosis Screening-Bone Density Scan 1958 DTaP/Tdap/Td Vaccine (1 - Tdap) 1969 Hepatitis B Screening 1976 Pneumococcal vaccine 65+ (1 of 1 - PCV) 2008 Zoster Vaccine (1 of 2) 2008 Well Visit 65+ 2023 08/29/2020, 08/17/2019 Influenza Vaccine (Season Ended) 2025 08/24/20 20, 08/03/2015 Breast Cancer Screening-Mammogram 10/12/2025 10/12/2024, 10/04/2023, 10/02/2022, Additional history exists Procedures Procedure Name Priority Date/Time Associated Diagnosis Comments SCREENING MAMMOGRAM BILATERAL W DENNIS Schedule Routine, Read Routine (OP Routine) 10/12/2024 9:53 AM ASSEMBLER CLIP ON SUNGLASSES Screening mammogram, encounter for from Last 3 Months or Most Recently Relevant to Health Maintenance Results * Screening Mammogram Bilateral W Dennis (10/12/2024 9:53 AM ASSEMBLER CLIP ON SUNGLASSES) Anatomical Region Laterality Modality Breast Bilateral Mammography Narrative 10/14/2024 4:31 PM ASSEMBLER CLIP ON SUNGLASSES Mammogram Technique: Bilateral Digital Breast Tomosynthesis, Bilateral C-view 2D Screening mammogram. Views obtained: bilateral craniocaudal and bilateral mediolateral oblique. Computer Aided Detection was performed. Mammogram Findings: The present examination has been compared to prior imaging studies performed on 08/29/2020, 09/26/2021 and 11/03/2021, and at [facility] on 12/13/2021, 10/02/2022 and 10/04/2023. There are [...] on 08/29/2020, 09/26/2021 and 11/03/2021, and at [facility] on 12/13/2021, 10/02/2022 and 10/04/2023. There are [...] Most Recently Relevant to Health Maintenance Insurance [facility] CHOICE PLUS [facility] MEDICARE GOLD T MEDICARE GOLD Care Teams Hostel Manager Relationship Specialty Start Date End Date Sánchez Meehan MD [address] [place], [place] [id number] PCP - General Family Practice 10/12/24 Sarbjit Florian MD [address] [place], [place] [id number] Referring Physician Obstetrics and Gynecology 10/12/24
--- OUTSIDE RECORDS SUMMARY | 2025-04-19 11:27 | XMS_ITS | Encounter Summary ---
Author Organization [employer] Address [address] [place] [address] Care Team Providers Care Sail Repair Person Name Role Phone Florin Lugo MD Primary Care Provider [phone] Encounter Details Date Type Department Care Team (Late st Contact Info) Description 06/30/2009 Outpatient Historical [facility], Authorized P NO ADDRESS ON FILE James Valles MD [address] [place] [id number] Social History Tobacco Use Types Packs/Day Years Used Date Smoking Tobacco: Never Assessed Comments Unknown Sex and Gender Information Value Date Recorded Sex Assigned at Not on file Legal Sex Female 3:21 AM CONDITIONING ROOM WORKER Gender Identity Not on file Sexual Orientation Not on file documented as of this encounter Plan of Treatment Not on file documented as of this encounter Procedures Procedure Name Priority Date/Time Associated Diagnosis Comments ED HOLD Stat 06/30/2009 7:48 PM CDT documented in this encounter Results * ED HOLD (06/30/2009 7:48 PM CDT) SPECIMEN HOLD, BLOOD 7 days [facility] Blood specimen (specimen) 06/30/2009 7:48 PM CDT 06/30/2009 7:53 PM CDT us Authorized P Er CHEMISTRY ORDERABLES Final Resul t [facility] CLIA# [id number] [address] [place] [address] documented in this encounter Visit Diagnoses Not on filedocumented in this encounter Care Teams Sail Repair Person Relationship Specialty Start Date End Date Florin Lugo MD PCP - General Internal Medicine 12/20/14 10/23/20 documented as of this encounter
--- OUTSIDE RECORDS SUMMARY | 2025-04-19 11:27 | XMS_ITS | Clinical Summary ---
Author Organization [employer] Address [address] [place] [address] Care Team Providers Care Brainer Name Role Phone Unavailable Primary Care Provider Unavailabl e Allergies Active Allergy Reactions Criticality Noted Date Comments Penicillins Rash Low 05/04/2015 Medications atorvastatin (LIPITOR) 20 mg tablet TAKE 1 TABLET BY MOUTH DAILY WITH SUPPER 90 Tablet 07/15/2020 Active pantoprazole (PROTONIX) 40 mg Tablet, Delayed Release (E.C.) TAKE 1 TABLET BY MOUTH DAILY 90 Tablet 3 07/29/2020 Active bisoprolol-hydro CHLOROthiazide (ZIAC) 2.5-6.25 mg tablet TAKE 1 TABLET BY MOUTH DAILY 90 Tablet 3 09/02/2020 Active Active Problems Problem Noted Date Diagnosed Date URI, acute 11/07/2017 Gastroesophageal reflux disease without esophagi tis 07/12/2016 Routine general medical exam ination at a health care facility 05/04/2015 Essential hypertension, benign 05/04/2015 Hyperlipidemia 05/04/2015 Immunizations Immunization Administration Dates Next Due Influenza Seasonal Unspecified Formulation IM Social History Tobacco Use Types Packs/Day Years Used Date Smoking Tobacco: Never Smokeless Tobacco: Never Alcohol Use Standard Drinks/Week Comments Yes 0 (1 standard drink = 0.6 oz pur e alcohol) social Comments No Sex and Gender Information Value Date Recorded Sex Assigned at Not on file Legal Sex Female 3:21 AM IRON WORKER APPRENTICE Gender Identity Not on file Sexual Orientation Not on file Last Filed Vital Signs Vital Sign Reading Time Taken Comments Blood Pressure 108/80 10/16/2019 9:13 AM IRON WORKER APPRENTICE Pulse - - Temperature 36.8 C (98.3 F) 11/07/2017 1:04 PM IRON WORKER APPRENTICE Respiratory Rate - - Oxygen Saturation - - Inhaled Oxygen Concentration - - Weight 104.4 kg (230 lb 4 oz) 10/16/2019 9:13 AM IRON WORKER APPRENTICE Height 162.6 cm (5' 4) 10/16/2019 9:13 AM IRON WORKER APPRENTICE Body Mass Index 39.52 10/16/2019 9:13 AM IRON WORKER APPRENTICE Plan of Treatment Health Maintenance Due Date Last Done Comments DTAP/TDAP/TD VACCINES (1 - Tdap) 1977 FIT-DNA Q 3 years 2003 FIT/FOBT Q 1 year 2003 Flex Sig/CT Colonography Q 5 years 2003 PNEUMOCOCCAL VACCINE 50+ YEA RS (1 of 1 - PCV) 2008 ZOSTER VACCINE (1 of 2) 2008 BREAST CANCER SCREENING 08/25/2020 08/25/20 19 (Previously completed), 08/25/2019, 07/03/2018, Additional history exists COLORECTAL SCREENING 04/04/2021 04/04/2011 (Previously completed) Colorectal Cancer Screening 04/04/2021 OSTEOPOROSIS SCREENING 2023 INFLUENZA VACCINE (#1) 2024 08/03/2015 RSV VACCINE (60+ or ) (1 - 1-dose 75+ series) 2033 Procedures Procedure Name Priority Date/Time Associated Diagnosis Comments MAMMO SCREENING BILAT Routine 08/25/2019 from Last 3 Months or Most Recently Relevant to Health Maintenance Results * MAMMO SCREENING BILAT (08/25/2019) Anatomical Region Laterality Modality Breast Bilateral Mammography us Abstract Provider MAMMO ORDERABLES Edited Result - Final from Last 3 Months or Most Recently Relevant to Health Maintenance Insurance
[2025-04-19 20:13] LABS: Basophils Absolute Auto 0.1 K/mm3 (0.0-0.1); Basophils Percent Auto 0.8 % (0.2-1.2); Eosinophils Absolute Auto 0.1 K/mm3 (0-0.3); Hematocrit 42.5 % (37.0-47.0); Hemoglobin 13.1 g/dL (12.0-15.0); Immature Granulocyte Absolute 0.03 K/mm3 (0.00-0.031); Immature Granulocyte Percent A 0.5 % (0-0.5); Lymphocytes Absolute Auto 1.66 K/mm3 (0.9-3.2); Lymphocytes Percent Auto 25.9 % (18.3-44.2); Mean Corpuscular HGB Conc 30.8 g/dl (32-36); Mean Corpuscular Hemoglobin 28.6 pg (26-34); Mean Corpuscular Volume 92.8 fl (80-100); Mean Platelet Volume 9.3 fl (7.4-10.4); Monocytes Absolute Auto 0.5 K/mm3 (0.1-0.6); Neutrophils Percent Auto 62.8 % (45.5-73.1); Platelet Count Result 292 k/mm3 (150-375); Red Blood Count 4.58 M/mm3 (4.2-5.4); Red Cell Distribution Width 14.1 % (11.5-14.5); White Blood Count 6.4 K/mm3 (4.5-10.0)
[2025-04-19 20:30] LABS: Alanine Aminotransferase 19 U/L (6-35); Alkaline Phosphatase 110 U/L (38-126); Anion Gap 7 mmol/L (4-12); Aspartate Amino Transferase 59 U/L (14-36); Bilirubin,Total 0.6 mg/dL (0.2-1.3); Blood Urea Nitrogen 20 mg/dL (7-17); Calcium 9.5 mg/dL (8.4-10.2); Carbon Dioxide 27 mmol/L (22-30); Chloride 106 mmol/L (98-107); Cholesterol 193 mg/dL (0-200); Estimated Glomerular Filt Rate > 60; Glucose 84 mg/dL (65-110); HDL Direct 54 mg/dL; Potassium 4.1 mmol/L (3.4-5.0); Sodium 140 mmol/L (137-145); Total Protein 7.3 g/dL (6.3-8.2); Triglycerides 80 mg/dL (<150)
[2025-04-19 20:42] LABS: LDL Cholesterol Direct 89 mg/dL
[2025-04-19 21:54] LABS: Vitamin D 25 Hydroxy 49.9 ng/mL
[2025-04-20 03:06] LABS: Hemoglobin A1C 5.9 % (<5.7)
== END 2025-04-19 10:31 | disposition home or self-care (01) ==
PROVIDERS: PCP Family Medicine; Visit Provider Family Medicine
DX: E78.5 Hyperlipidemia, unspecified (principal); I10 Essential (primary) hypertension; R73.03 Prediabetes; E66.9 Obesity, unspecified; R79.89 Other specified abnormal findings of blood chemistry; E53.8 Deficiency of other specified B group vitamins; R74.01 Elevation of levels of liver transaminase levels; K21.9 Gastro-esophageal reflux disease without esophagitis; R94.4 Abnormal results of kidney function studies; Z00.00 Encounter for general adult medical examination without abnormal findings; E55.9 Vitamin D deficiency, unspecified
CPT/HCPCS: 36415; 80053; 80061; 82306; 82607; 83036; 85025